=== PATIENT | female | born 1995 | race Caucasian/White ===

== ENCOUNTER 2024-07-22 21:09 | Emergency (ER) | payer OTHER ==
[2024-07-22 21:31] VITALS: BP 128/101; PULSE 84; RESP 18; TEMP 98.1; BMI 19.9
[2024-07-22 21:50] LABS: HCG,QUALITATIVE URINE Negative
[2024-07-22] MEDS ORDERED: KETOROLAC TROMETHAMINE 30 MG/1 ML VIAL ONE (21:59)
[2024-07-22 22:02] LABS: MCH 32.9 pg (25.7-33.7); MCHC 32.6 g/dl (32.0-36.0); PLATELET COUNT 240.6 10^3/uL (134-434); RBC 4.26 10^6/uL (3.60-5.2); RDW 13.8 % (11.6-15.6); WHITE BLOOD COUNT 8.5 10^3/uL (4.0-10.8)
[2024-07-22] MEDS: KETOROLAC TROMETHAMINE 30 MG/1 ML VIAL IVPUSH ONE (22:09)
[2024-07-22] MEDS: SODIUM CHLORIDE 0.9% 500 ML INFUS.BAG IV ONE (22:09)
[2024-07-22 22:16] LABS: ALBUMIN 4.5 g/dl (3.4-5.0); BILIRUBIN,TOTAL 0.3 mg/dl (0.2-1); CREATININE 0.8 mg/dl (0.6-1.3); POTASSIUM 3.4 mmol/L (3.5-5.1); TOT PROT 7.3 g/dl (6.4-8.2)
[2024-07-22] MEDS ORDERED: TAMSULOSIN HCL 0.4 MG CAP ONE (23:08)
[2024-07-22] MEDS ORDERED: morphine CARPU-JECT 2 MG/1 ML DISP.SYRIN IVPUSH ONE (23:22)
[2024-07-22] MEDS: TAMSULOSIN HCL 0.4 MG CAP PO ONE (23:23)
[2024-07-22 23:26] LABS: PLATELET ESTIMATE ADEQUATE
[2024-07-22] MEDS ORDERED: POTASSIUM CHLORIDE TABS 20 MEQ TABLET.ER (FP) PO ONE (23:41)
[2024-07-22] MEDS ORDERED: MAG HYDROX/AL HYDROX/SIMETH 30 ML UNIT-DOSE CUP ONE (23:41)
[2024-07-22] MEDS ORDERED: MAGNESIUM 1GM/D5W - 1 GM/100 ML IVPB IVPB ONE (23:42)
[2024-07-22] MEDS: POTASSIUM CHLORIDE TABS 20 MEQ TABLET.ER (FP) PO ONE (23:49)
[2024-07-22] MEDS: MAG HYDROX/AL HYDROX/SIMETH 30 ML UNIT-DOSE CUP PO ONE (23:49)
[2024-07-22] MEDS: MAGNESIUM SULF 50% (8.12 MEQ/2 ML-1 GM VIAL) IVPB ONE (23:49)
== END 2024-07-23 00:28 | disposition home or self-care (01) ==
LOC: FER 21:09
PROC: 3E0333Z Introduction of Anti-inflammatory into Peripheral Vein, Percutaneous Approach (ICD-10-PCS; principal; 2024-07-22)
PROC: 3E033GC Introduction of Other Therapeutic Substance into Peripheral Vein, Percutaneous Approach (ICD-10-PCS; 2024-07-22)
DX: N23 Unspecified renal colic (principal)
CPT/HCPCS: 36415; 74176-TC; 80053; 81003; 84703; 85025; 99284-25